=== PATIENT | female | born 1995 | race African-American/Black ===

== ENCOUNTER 2018-06-03 18:56 | Emergency (ER) | payer SELFPAY, OTHER ==
[2018-06-03] MEDS: HALOPERIDOL 5 MG INJ IM ×2 (19:27→20:00)
[2018-06-03] MEDS: DIPHENHYDRAMINE 50 MG INJ IM (20:13)
== END 2018-06-04 01:54 | disposition home or self-care (01) ==
LOC: E/R 06-04 01:54
DX: F11.90 Opioid use, unspecified, uncomplicated (principal); R40.2142 Coma scale, eyes open, spontaneous, at arrival to emergency department; R40.2252 Coma scale, best verbal response, oriented, at arrival to emergency department; R40.2362 Coma scale, best motor response, obeys commands, at arrival to emergency department
CPT/HCPCS: 96372; 99284-25